=== PATIENT | female | born 1970 | race Caucasian/White ===

== ENCOUNTER → 2022-11-09 | Outpatient (CLI) | payer BC ==
--- NOTE | 2022-11-09 10:30 | USB ---
Reason for Exam: Follow-up at short interval from prior study. Patient History: Menarche at age 10. First Full-Term at age 20. Hysterectomy at age 40. Postmenopausal. Patient has history of breast feeding. 05/03/2022, Benign US biopsy breast VAD LT on the left side. Maternal grandmother had breast cancer. Risk Values: Jesica 5 year model risk: 1.2%. NCI Lifetime model risk: 8.8%. Technique: Method: Targeted. Prior Study Comparison: 01/07/2014 Bilateral Screening Mammogram, [facility]. 03/30/2022 Bilateral MG 3D screening mammo w/cad, [facility]. 05/03/2022 Left MG diagnostic mammo LT wo CAD., [facility]. Findings: The upper section of the breast of the left breast, the axilla of the left breast and the retroareolar of the left breast were scanned. Imaged: Ultrasound imaging of: Area of concern, retroareolar region and axilla. New hypoechoic lesion with shadowing measuring up to 5 mm 1:00 4 cm from the nipple. Stable appearing cyst with clip in place at 12:00 4 cm to the nipple. Overall Assessment: Suspicious, BI-RAD 4 Management: Ultrasound Core Biopsy of the left breast. A clinical breast exam by your physician is recommended on an annual basis and results should be correlated with mammographic findings. This exam should not preclude additional follow-up of suspicious palpable abnormalities. Results were given to the patient verbally at the time of exam. Electronically signed and approved by: Erickson Hess DO
== END | disposition home or self-care (01) ==
LOC: RADUSWWP 09:40
PROVIDERS: ATTEND Surgery
DX: R92.8 Other abnormal and inconclusive findings on diagnostic imaging of breast (principal); Z78.0 Asymptomatic menopausal state; Z80.3 Family history of malignant neoplasm of breast

== ENCOUNTER → 2022-11-16 | Day surgery (SDC) | payer BC ==
--- NOTE | 2022-11-21 12:06 | MM ---
Reason for Exam: Post Procedure Mammogram. Last screening mammogram was performed 7 month(s) ago. Patient History: Menarche at age 10. First Full-Term at age 20. Hysterectomy at age 40. Postmenopausal. Patient has history of breast feeding. 05/03/2022, Benign US biopsy breast VAD LT on the left side. Maternal grandmother had breast cancer. Risk Values: Jesica 5 year model risk: 1.2%. NCI Lifetime model risk: 8.8%. Prior Study Comparison: 01/07/2014 Bilateral Screening Mammogram, [facility]. 03/30/2022 Bilateral MG 3D screening mammo w/cad, [facility]. 05/03/2022 Left MG diagnostic mammo LT wo CAD., [facility]. Tissue Density: Left: The breast tissue is heterogeneously dense. This may lower the sensitivity of mammography. Pathology Description: Marker Left Behind. Needle Type: Celero Cores: 3 Gauge: 12 The procedure of ultrasound guided core biopsy was explained to the patient. Benefits, alternatives, and risks were discussed. An informed consent was then obtained. The patient was placed in supine positioning for imaging and for the procedure. The overlying skin was prepped and draped in usual sterile fashion. Lidocaine buffered with bicarbonate was used as anesthetic into the skin and subcutaneous tissue up to area of concern in the left breast. Under ultrasound guidance, a 12-gauge vacuum assisted biopsy gun device was used to obtain 3 core samples. Following this, a biopsy clip was left in lesion. The patient tolerated the procedure well without any immediate complication. The patient was kept in the radiology department for short stay after the procedure and then discharged home in stable condition. Postprocedure mammogram: The patient was transferred to mammography for physician ordered post procedure mammogram for clip placement verification. Impression: Successful, uncomplicated ultrasound guided core biopsy of area of concern in the left 1:00 breast, full pathology results to follow. Pathology Results: Result: High risk, Papilloma-high risk. LEFT BREAST, 1:00, NEEDLE CORE BIOPSY: Sclerotic intraductal papilloma. Overall Assessment: High risk Assessment: MG diagnostic mammo LT wo CAD. - Left: Suspicious, BI-RAD 4. Management: Surgical Consultation of the left breast. Electronically signed and approved by: William Bello M.D. Radiologis
== END ==
LOC: RADUSWWP 12:30
PROVIDERS: ATTEND Surgery
DX: R92.8 Other abnormal and inconclusive findings on diagnostic imaging of breast (principal); D24.2 Benign neoplasm of left breast
CPT/HCPCS: 88305; 77065; 19083; A4648

== ENCOUNTER 2023-01-09 07:41 | Day surgery (SDC) | payer BC ==
[2023-01-03 09:00] VITALS: BMI 39.8
--- NOTE | 2023-01-05 08:57 | P.PN ---
Subjective Progress Note Date: 01/05/23 Principal diagnosis: Discordant core biopsy intraductal papilloma left breast intraductal papilloma/discordant Aileen is a 52-year-old white female seen in consultation for Alice Rosales regarding a ultrasound-guided core biopsy of the left breast. She underwent a bilateral screening mammogram on 1522. This led to a left breast ultrasound and a left breast ultrasound-guided core biopsy. The biopsy was performed on 2822. Pathology revealed fibrocystic changes including cyst wall with apocrine metaplasia and fibrosis. This was felt to be benign concordant. Did not feel any lumps masses or nodules of concern in either breast. Tolerated the core biopsy without difficulty. She has never had any surgery on her breast in the past. She has not had any recent trauma or infection in the breast. She is not taking any hormones. The patient had a repeat ultrasound on 11-09-22 which showed a new area of concern at 1:00 4 cm from the nipple. A core biopsy on 11-16-22 revealed a sclerotic intraductal papilloma which was reviewed with the radiologist. This was felt to be discordant and excision was recommended. Caffiene: minimal nicotine: none chocolate: occasional BCP: none hormones; none hysterectomy 2010 still has her ovaries done for ? spot no cancer Family History: father: throat cancer, smoker Hormonal History: menarche: 11 M1, breast fed: yes, age at first : 20 menopause: hysterectomy 39 left ovaries Surgical History: hysterectomy bilateral knee surgery ACL surgery on the left and ganglion cyst on the right Medical History: none Social History: nicotine: none alcohol: occasional drugs: none - Constitutional Constitutional: Denies chills, Denies fever - EENT Eyes: denies blurred vision, denies pain Ears: deny: decreased hearing, tinnitus Ears, nose, mouth and throat: Reports headache, Denies sore throat - Breasts Breasts: bilateral: as per HPI - Cardiovascular Cardiovascular: Denies chest pain, Denies shortness of breath - Respiratory Respiratory: Denies cough - Gastrointestinal Gastrointestinal: Denies abdominal pain, Denies diarrhea, Denies nausea, Denies vomiting - Genitourinary (Female) Genitourinary: Denies dysuria, Denies hematuria - Menstruation Menstruation: Reports post hysterectomy - Musculoskeletal Comment: left knee Musculoskeletal: Reports as per HPI - Integumentary Comment: itching right hand Integumentary: Denies pruritus, Denies rash - Neurological Neurological: Denies numbness, Denies weakness - Psychiatric Psychiatric: Denies anxiety, Denies depression - Endocrine Endocrine: Reports weight change - Hematologic/Lymphatic Comment: none - Allergic/Immunologic Allergic/Immunologic: Reports as per HPI Past Medical History Past Medical History: No Reported History, Osteoarthritis (OA) Additional Past Medical History / Comment(s): left knee arthritis History of Any Multi-Drug Resistant Organisms: None Reported Past Surgical History: Hysterectomy Additional Past Surgical History / Comment(s): multiple Bilat knee operations Past Anesthesia/Blood Transfusion Reactions: Postoperative Nausea & Vomiting (PONV) Past Psychological History: No Psychological Hx Reported Smoking Status: Never smoker Past Alcohol Use History: Occasional Past Drug Use History: None Reported Medications and Allergies Home Medications Medication Instructions Recorded Confirmed Type No Known Home Medications 04/18/22 05/12/22 History Allergies Allergy/AdvReac Type Severity Reaction Status Date / Time No Known Allergies Allergy Verified 05/12/22 12:37 Objective - Constitutional General appearance: Present: cooperative - EENT Eyes: Present: EOMI ENT: Present: hearing grossly normal - Neck Neck: Present: normal ROM - Respiratory Respiratory: bilateral: CTA - Cardiovascular Heart sounds: normal: S1, S2 - Integumentary Integumentary: Present: normal turgor - Musculoskeletal Musculoskeletal: Present: gait normal - Psychiatric Psychiatric: Present: A&O x's 3, appropriate affect, intact judgment & insight - Additional findings Additional findings: Breast examination: puncture site healing well left breast at recent core biopsy site Inspection: Bilateral grade 2 ptosis Palpation: Right breast: No dominant masses or nodules of concern Right axilla: No adenopathy of concern left breast: Multiple positional exam no dominant masses or nodules of concern Left axilla: No adenopathy of concern Assessment and Plan Assessment: Impression: Discordant left breast core biopsy Plan: Left breast needle local excisional biopsy, the lesion to be localized has a Top-blanker operator and cc from above approach was recommended as per Dr. Denton. The patient has a second marker in her breast which is a core marker which was from a benign biopsy in the past. This area is not been localized. The patient may have left breast onco-plastic tissue transfer as well. Cc: Alice BARBER
[~2023-01-09 07:41] MED LIST: DEXAMETHASONE SOD PHOSPHATE 4 MG/ML 1 ML VIAL IV ONE; HEPARIN SODIUM,PORCINE/PF 5,000 UNIT/0.5 ML SYRINGE SQ PRN; HYDROmorphone 0.5 MG/0.5 ML SYRINGE IVP PRN; LACTATED RINGERS 1,000 ML IV SCH; LIDOCAINE 1% (10MG/ML) FOR IV START INTRADERMA PRN; MIDAZOLAM 2 MG/2 ML VIAL IV PRN; ONDANSETRON 4 MG/2 ML VIAL IVP ONE
[2023-01-09] MEDS ORDERED: ALPRAZolam 0.5 MG TAB ONE (08:25)
[2023-01-09] MEDS ORDERED: SCOPOLAMINE 1 MG/72 HR PATCH TRANSDERM ONE (08:35)
[2023-01-09 09:03] VITALS: RESP 16
[2023-01-09] MEDS ORDERED: LIDOCAINE 1% INJ 10MG/ML (20 ML MDV) SQ ONE (09:10)
[2023-01-09] MEDS ORDERED: PROPOFOL 10 MG/ML 20 ML VIAL IV ONE (12:09)
[2023-01-09] MEDS ORDERED: fentaNYL (PF) 50 MCG/ML 2 ML AMP ONE (12:09)
[2023-01-09] MEDS ORDERED: LIDOCAINE 1% INJ 10MG/ML (20 ML MDV) ONE (12:09)
[2023-01-09] MEDS ORDERED: ePHEDrine 50 MG/ML 1 ML VIAL ONE (12:09)
[2023-01-09] MEDS ORDERED: PHENYLEPHRINE-0.9% NACL SYG 1,000 MCG/10 ML SYRINGE ONE (12:09)
[2023-01-09] MEDS ORDERED: MIDAZOLAM 2 MG/2 ML VIAL ONE (12:09)
[2023-01-09] MEDS ORDERED: SUCCINYLCHOLINE CHLORIDE 200 MG/10 ML VIAL IV ONE (12:09)
[2023-01-09] MEDS ORDERED: LACTATED RINGERS 1,000 ML IV ONE (12:39)
--- NOTE | 2023-01-09 13:01 | P.OP ---
Date of Procedure: 01/09/23 Preoperative Diagnosis: Discordant core biopsy left breast Postoperative Diagnosis: Same Procedure(s) Performed: Left breast needle localization excisional biopsy discordant core biopsy Anesthesia: GETA Surgeon: Viola Lott Estimated Blood Loss (ml): 5 IV fluids (ml): 500 Pathology: other (Breast tissue) Condition: stable Disposition: same day Indications for Procedure: Discordant core biopsy left breast/intraductal papilloma Operative Findings: Fibrofatty breast tissue Description of Procedure: Following needle localization of the area of concern in the left breast the patient was brought to the operating room. Following induction of anesthesia the left breast was prepped and draped in a sterile fashion. An incision was made and carried down to the hook of the needle. Surrounding tissue was excised. The specimen was approximately 6 cm x 6 cm in size. After assured that hemostasis was attained titanium clips were placed. The deep tissues were closed using 3-0 Vicryl suture. The skin was closed using 3-0 Vicryl suture in the subcutaneous tissue and 4-0 Monocryl. The surgical glue was placed. Patient tolerated the procedure in stable condition. All instrument and sponge counts were correct at the end of the case. Radiograph of the specimen revealed the top. Clip which was the area of concern had been adequately removed.
[2023-01-09 13:54] VITALS: TEMP 97
[2023-01-09] MEDS ORDERED: HYDROcodone/APAP 5-325MG 1 EACH TAB ONE (14:29)
[2023-01-09] MEDS ORDERED: HYDROcodone/APAP 5-325MG 1 EACH TAB PO ONE (14:30)
[2023-01-09 15:12] VITALS: BP 145/88; PULSE 85
--- NOTE | 2023-01-17 12:16 | MM ---
Risk Values: Jesica 5 year model risk: 1.5%. NCI Lifetime model risk: 11.1%. Pathology Description: Approach: CC FA Needle Type: 7 cm Kopan no problems/ top hat clip is what we biopsied The needle localization procedure with wire placement for surgical excision was explained to the patient. Benefits, alternatives, and risks were discussed. An informed consent was then obtained. A timeout was performed. The overlying skin was prepped in usual sterile fashion. Lidocaine was used as anesthetic into the skin and subcutaneous tissue up to the level of area of concern. The tophat marker was localized. A 7 cm needle was used. It was placed using a superior craniocaudal approach under mammographic guidance. Subsequent 90 degrees mammogram show the needle to be in satisfactory position relative to the targeted area. The wire was placed and the needle was withdrawn. The wire was fixed to patient's skin. Images were reviewed with the surgeon. The patient tolerated the procedure well without any immediate complication. The patient was kept in the radiology department for short stay after the procedure and then taken to surgery for surgical excision. Specimen: Biopsy marker and wire are identified in specimen mammogram. Impression: 1. Successful needle localization with wire placement and surgical excision of biopsy marker. Pathology Results: Result: Malignant, Ductal carcinoma in situ, micropapillary type. 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 Sclerotic intraductal papilloma, margins negative. Background fibrocystic changes and previous biopsy site. See Surgical Pathology Cancer Case Summary. Overall Assessment: Malignant Management: Surgical Consultation of the left breast. Electronically signed and approved by: Melchor Diamond D.O. Radiologis
== END 2023-01-09 15:19 | disposition home or self-care (01) ==
LOC: OR 07:41
PROVIDERS: ATTEND Surgery
DX: D05.12 Intraductal carcinoma in situ of left breast (principal); N60.82 Other benign mammary dysplasias of left breast; F10.90 Alcohol use, unspecified, uncomplicated
CPT/HCPCS: 88342; 88307; 88341; 76098; 19281; 19101; J2250; J0330; J1100; J0690; J2405; J2001; J3010; J2704; J1644; J2371

== ENCOUNTER → 2023-01-12 | Outpatient (CLI) | payer BC ==
--- NOTE | 2023-01-12 14:32 | P.PN ---
Progress Note - Text Progress Note Date: 01/12/23 This a 52-year-old white female status post left breast excisional biopsy [id number]. Postoperatively she is doing well only with complaints of abdominal pain when she coughs. It is not complaining of any fever or chills. She hasn't taken any pain medicine. Examination: lungs: Heart: Regular rate and rhythm Incision: Clean and dry Impression: Patient doing well postoperatively pathology pending Plan: Follow-up 6 months with repeat left breast mammogram, patient will call next week for pathology results CC: Alice Rosales
[2023-01-12 14:42] VITALS: BP 133/84; PULSE 67; RESP 18; TEMP 98.1
== END ==
LOC: WWCWWP 14:25
PROVIDERS: ATTEND Surgery
DX: D24.2 Benign neoplasm of left breast (principal); Z88.8 Allergy status to other drugs, medicaments and biological substances

== ENCOUNTER → 2023-02-09 | Outpatient (CLI) | payer BC ==
[2023-02-09 13:36] VITALS: BP 163/88; PULSE 65; RESP 17; TEMP 98.4
--- NOTE | 2023-02-09 13:48 | P.PN ---
Subjective Progress Note Date: 02/09/23 Principal diagnosis: DCIS left breast This a 52-year-old white female status post left breast excisional biopsy [id number]. Pain well postoperatively. Her pathology revealed ductal carcinoma in situ. Her margins were negative. [place] [id number]. No further surgical intervention was recommended. Note medical oncology [id number] reviewed recommendations for tamoxifen Note radiation oncology [id number] reviewed recommendations for radiation therapy; one week Objective - Vital Signs Vital signs: Vital Signs Temp 98.4 F 02/09/23 13:33 Pulse 65 02/09/23 13:33 Resp 17 02/09/23 13:33 BP 163/88 02/09/23 13:33 Pulse Ox 95 02/09/23 13:33 FiO2 Intake & Output 02/08/23 02/09/23 02/09/23 18:59 06:59 18:59 Weight 99.337 kg - Constitutional General appearance: Present: cooperative - EENT ENT: Present: hearing grossly normal - Neck Neck: Present: normal ROM - Respiratory Respiratory: bilateral: CTA - Cardiovascular Rhythm: regular Heart sounds: normal: S1, S2 - Gastrointestinal General gastrointestinal: Present: soft - Integumentary Integumentary: Present: normal turgor - Musculoskeletal Musculoskeletal: Present: gait normal - Psychiatric Psychiatric: Present: A&O x's 3, appropriate affect, intact judgment & insight - Additional findings Additional findings: Breast Exam: BRA: 40DD Inspection: Well-healed scar left breast, bilateral grade 2 ptosis Palpation: Right breast: Multi-positional exam no dominant masses or nodules of concern Right axilla: No adenopathy of concern Left breast: Multiple positional exam no dominant masses or nodules of concern, well-healed scar from prior surgery Left axilla: No adenopathy of concern Assessment and Plan Assessment: Impression: DCIS left breast Plan: 1 week radiation therapy Tamoxifen as per medical oncology Follow-up here in 4 months CC: Alice Rosales
== END ==
LOC: WWCWWP 12:47
PROVIDERS: ATTEND Surgery
DX: D05.12 Intraductal carcinoma in situ of left breast (principal); Z88.8 Allergy status to other drugs, medicaments and biological substances

== ENCOUNTER → 2023-04-02 | Outpatient (CLI) | payer BC ==
--- NOTE | 2023-04-02 15:02 | MM ---
Reason for Exam: Follow-up at short interval from prior study. Last screening mammogram was performed 12 month(s) ago. Patient History: Menarche at age 10. First Full-Term at age 20. Hysterectomy at age 40. Postmenopausal. Patient has history of breast feeding. Breast cancer, left, age 52. Previous chest radiation therapy. 01/09/2023, Lumpectomy on the Left side. 01/09/2023, Malignant MG pre op needle loc LT on the left side. 11/16/2022, High risk US biopsy breast VAD LT on the left side. 05/03/2022, Benign US biopsy breast VAD LT on the left side. Maternal grandmother had breast cancer. Prior Study Comparison: 03/30/2022 Bilateral MG 3D screening mammo w/cad, [facility]. 05/03/2022 Left MG diagnostic mammo LT wo CAD., [facility]. 11/16/2022 Left MG diagnostic mammo LT wo CAD., [facility]. Tissue Density: Right: There are scattered fibroglandular densities. Findings: Analyzed By CAD. Right breast pattern appears stable. There is a focal asymmetry which is stable in the upper right medial lateral oblique view. No suspicious groups of microcalcifications, spiculated or lobular masses, architectural distortion or other secondary signs of malignancy are mammographically apparent. Overall Assessment: Benign, BI-RAD 2 Management: Screening Mammogram of the right breast in 1 year. Diagnostic Mammogram of the left breast in 4 months. A negative mammogram report should not preclude additional follow up of suspicious palpable abnormalities. Patient should continue monthly self breast exam. A clinical breast exam by your physician is recommended on an annual basis and results should be correlated with mammographic findings. Electronically signed and approved by: Melchor Diamond D.O. Radiologis
== END | disposition home or self-care (01) ==
LOC: RADMAMWWP 14:34
PROVIDERS: ATTEND Radiology Radiation Oncology
DX: R92.321 Mammographic fibroglandular density, right breast (principal); D05.12 Intraductal carcinoma in situ of left breast; Z17.0 Estrogen receptor positive status [ER+]; Z78.0 Asymptomatic menopausal state; Z85.3 Personal history of malignant neoplasm of breast; Z80.3 Family history of malignant neoplasm of breast
CPT/HCPCS: 77061; 77065

== ENCOUNTER → 2023-07-09 | Outpatient (CLI) | payer BC ==
--- NOTE | 2023-07-09 23:31 | MM ---
Reason for Exam: Follow-up at short interval from prior study. Last mammogram was performed 1 year(s) and 3 month(s) ago. Patient History: Menarche at age 10. First Full-Term at age 20. Hysterectomy at age 40. Postmenopausal. Patient has history of breast feeding. Breast cancer, left, age 52. Previous chest radiation therapy. 01/09/2023, Lumpectomy on the Left side. 01/09/2023, Malignant MG pre op needle loc LT on the left side. 11/16/2022, High risk US biopsy breast VAD LT on the left side. 05/03/2022, Benign US biopsy breast VAD LT on the left side. Maternal grandmother had breast cancer. Prior Study Comparison: 05/03/2022 Left MG diagnostic mammo LT wo CAD., [facility]. 11/16/2022 Left MG diagnostic mammo LT wo CAD., [facility]. 04/02/2023 Right MG 3D diag mammo w/cad RT, [facility]. Tissue Density: Left: The breasts are heterogeneously dense, which may obscure small masses. Findings: Analyzed By CAD. The pattern appears stable. Surgical clips from previous lumpectomy are present. Core marker remains in the anterior left breast. No significant interval change is evident. No suspicious groups of microcalcifications, spiculated or lobular masses, architectural distortion or other secondary signs of malignancy are mammographically apparent. Overall Assessment: Benign, BI-RAD 2 Management: Diagnostic Mammogram of both breasts in 8 months. A negative mammogram report should not preclude additional follow up of suspicious palpable abnormalities. Patient should continue monthly self breast exam. A clinical breast exam by your physician is recommended on an annual basis and results should be correlated with mammographic findings. Electronically signed and approved by: Melchor Diamond D.O. Radiologis
== END | disposition home or self-care (01) ==
LOC: RADMAMWWP 10:59
PROVIDERS: ATTEND Surgery
DX: R92.8 Other abnormal and inconclusive findings on diagnostic imaging of breast (principal); R92.332 Mammographic heterogeneous density, left breast; Z85.3 Personal history of malignant neoplasm of breast; Z80.3 Family history of malignant neoplasm of breast; Z78.0 Asymptomatic menopausal state
CPT/HCPCS: 77061; 77065

== ENCOUNTER → 2023-07-13 | Outpatient (CLI) | payer BC ==
[2023-07-13 09:57] VITALS: BP 147/90; PULSE 75; RESP 16; TEMP 98.3
--- NOTE | 2023-07-13 09:59 | P.PN ---
Subjective Progress Note Date: 07/13/23 07-13-23 Principal diagnosis: Discordant core biopsy intraductal papilloma left breast intraductal papilloma/discordant Aileen is a 53-year-old white female seen in consultation for Alice Rosales regarding a ultrasound-guided core biopsy of the left breast. She underwent a b ilateral screening mammogram on 1522. This led to a left breast ultrasound and a left breast ultrasound-guided core biopsy. The biopsy was performed on 2822. Pathology revealed fibrocystic changes including cyst wall with apocrine metaplasia and fibrosis. This was felt to be benign concordant. Did not feel any lumps masses or nodules of concern in either breast. Tolerated the core biopsy without difficulty. She has never had any surgery on her breast in the past. She has not had any recent trauma or infection in the breast. She is not taking any hormones. The patient had a repeat ultrasound on 11-09-22 which showed a new area of concern at 1:00 4 cm from the nipple. A core biopsy on 11-16-22 revealed a sclerotic intraductal papilloma which was reviewed with the radiologist. This was felt to be discordant and excision was recommended. Excision was done on 01-09-23 which revealed a 2 mm focus of DCIS. This was completely resected. This was grade 1. Margins were negative but closest margin was 1.5 mm from the posterior margin. This was ER positive and AL positive. She was subsequently seen by medical oncology and started on tamoxifen 20 mg daily. She was also seen by radiation oncology and had a five day curse which she completed on February 23. She is not complaining of any new lumps masses or nodules of concern in either breast. note Dr. Montero 07-09-23 reviewed left breast mammogram on 07-09-23 BIRAD 2 right breast mammogram on 04-02-23 BIRAD 2 Caffiene: minimal nicotine: none chocolate: occasional BCP: none hormones; none hysterectomy 2010 still has her ovaries done for ? spot no cancer Family History: father: throat cancer, smoker Hormonal History: menarche: 11 M1, breast fed: yes, age at first : 20 menopause: hysterectomy 39 left ovaries Surgical History: hysterectomy bilateral knee surgery ACL surgery on the left and ganglion cyst on the right Medical History: none Social History: nicotine: none alcohol: occasional drugs: none - Constitutional Constitutional: Denies chills, Denies fever - EENT Eyes: denies blurred vision, denies pain Ears: deny: decreased hearing, tinnitus Ears, nose, mouth and throat: Reports headache, Denies sore throat - Breasts Breasts: bilateral: as per HPI - Cardiovascular Cardiovascular: Denies chest pain, Denies shortness of breath - Respiratory Respiratory: Denies cough - Gastrointestinal Gastrointestinal: Denies abdominal pain, Denies diarrhea, Denies nausea, Denies vomiting - Genitourinary (Female) Genitourinary: Denies dysuria, Denies hematuria - Menstruation Menstruation: Reports post hysterectomy - Musculoskeletal Comment: left knee Musculoskeletal: Reports as per HPI - Integumentary Comment: itching right hand Integumentary: Denies pruritus, Denies rash - Neurological Neurological: Denies numbness, Denies weakness - Psychiatric Psychiatric: Denies anxiety, Denies depression - Endocrine Endocrine: Reports weight change - Hematologic/Lymphatic Comment: none - Allergic/Immunologic Allergic/Immunologic: Reports as per HPI Past Medical History Past Medical History: No Reported History, Osteoarthritis (OA) Additional Past Medical History / Comment(s): left knee arthritis History of Any Multi-Drug Resistant Organisms: None Reported Past Surgical History: Hysterectomy Additional Past Surgical History / Comment(s): multiple Bilat knee operations Past Anesthesia/Blood Transfusion Reactions: Postoperative Nausea & Vomiting (PONV) Past Psychological History: No Psychological Hx Reported Smoking Status: Never smoker Past Alcohol Use History: Occasional Past Drug Use History: None Reported Medications and Allergies Home Medications Medication Instructions Recorded Confirmed Type No Known Home Medications 04/18/22 05/12/22 History Allergies Allergy/AdvReac Type Severity Reaction Status Date / Time No Known Allergies Allergy Verified 05/12/22 12:37 Objective - Vital Signs Vital signs: Vital Signs Temp 98.3 F 07/13/23 09:12 Pulse 75 07/13/23 09:12 Resp 16 07/13/23 09:12 BP 147/90 07/13/23 09:12 Pulse Ox 96 07/13/23 09:12 FiO2 Intake & Output 07/12/23 07/13/23 07/13/23 18:59 06:59 18:59 Weight 97.522 kg - Constitutional General appearance: Present: cooperative - EENT Eyes: Present: EOMI ENT: Present: hearing grossly normal - Neck Neck: Present: normal ROM - Respiratory Respiratory: bilateral: CTA - Cardiovascular Rhythm: regular Heart sounds: normal: S1, S2 - Gastrointestinal General gastrointestinal: Present: soft - Integumentary Integumentary: Present: normal turgor - Musculoskeletal Musculoskeletal: Present: gait normal - Psychiatric Psychiatric: Present: A&O x's 3, appropriate affect, intact judgment & insight - Additional findings Additional findings: Breast examination: Inspection: Bilateral grade 2 ptosis, postsurgical postradiation changes left breast, left breast slightly smaller than right breast Palpation: Right breast: No dominant masses or nodules of concern Right axilla: No adenopathy of concern left breast: Multiple positional exam no dominant masses or nodules of concern, well-healed scar prior surgery Left axilla: No adenopathy of concern Assessment and Plan Assessment: Impression: Left breast DCIS 2 mm status postlumpectomy/radiation therapy/hormonal therapy presently No evidence of any recurrent disease Bilateral mammograms have been performed although they were staggered right breast in March and left breast in June Plan: Bilateral mammogram in March 2024 with examination at that time 6-month follow-up examination Continue to follow with medical and radiation oncology Continue tamoxifen Patient to follow-up sooner any questions or concerns CC: Dr. Albright
== END ==
LOC: WWCWWP 08:53
PROVIDERS: ATTEND Surgery
DX: R92.8 Other abnormal and inconclusive findings on diagnostic imaging of breast (principal); D05.12 Intraductal carcinoma in situ of left breast; N60.82 Other benign mammary dysplasias of left breast; Z88.8 Allergy status to other drugs, medicaments and biological substances

== ENCOUNTER → 2024-01-03 | Outpatient (CLI) | payer BC ==
[2024-01-03 10:41] VITALS: BP 149/86; PULSE 80; RESP 17; TEMP 97.9
--- NOTE | 2024-01-03 10:49 | P.PN ---
Subjective Progress Note Date: 01/03/24 Principal diagnosis: DCIS left breast 01-03-24 Principal diagnosis: DCIS left breast 2022 Aileen is a 53-year-old white female seen in consultation for Alice Rosales regarding a ultrasound-guided core biopsy of the left breast. She underwent a bilateral screening mammogram on 1522. This led to a left breast ultrasound and a left breast ultrasound-guided core biopsy. The biopsy was performed on 2822. Pathology revealed fibrocystic changes including cyst wall with apocrine metaplasia and fibrosis. This was felt to be benign concordant. She did not feel any lumps masses or nodules of concern in either breast. Tolerated the core biopsy without difficulty. She has never had any surgery on her breast in the past. She had not had any recent trauma or infection in the breast. She was not taking any hormones. The patient had a repeat ultrasound on 11-09-22 which showed a new area of concern at 1:00 4 cm from the nipple. A core biopsy on 11-16-22 revealed a sclerotic intraductal papilloma which was reviewed with the radiologist. This was felt to be discordant and excision was recommended. Excision was done on 01-09-23 which revealed a 2 mm focus of DCIS. This was completely resected. This was grade 1. Margins were negative but closest margin was 1.5 mm from the posterior margin. This was ER positive and UT positive. She was subsequently seen by medical oncology and started on tamoxifen 20 mg daily. She was also seen by radiation oncology and had a five day course which she completed on February 23. She is not complaining of any new lumps masses or nodules of concern in either breast. She had a stroke in July, she states she was a conference and started "picking on the air" seizure for approximately 1 minute and then was taken to the hospital. She was seen at the hospital in [facility] where a CT scan of the head was performed she was told that she had a bleed and a brain tumor. 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 In the hospital she was on a heparin drip for 4 days and then changed to Eliquis and Keppra. She is presently on Eliquis and Keppra. There was some concern at that time that the thrombosis may be related to the tamoxifen. However further discussion with medical oncology and her primary care doctor do not believe that this is Exofin, however as a precaution she has opted not to take it at this time. note Dr. Montero 09-25-23 reviewed she stopped tamoxifen secomdary to the stroke; she is also on eliquis note radiation oncology reivewed: 09-13-23 Plan of any new lumps masses or nodules of concern in either breast. She does feel postoperative changes in the left breast. Secondary to the stroke is unable to drive for 6 months from the event. left breast mammogram on 07-09-23 BIRAD 2 right breast mammogram on 04-02-23 BIRAD 2 Caffiene: minimal nicotine: none chocolate: occasional BCP: none hormones; none hysterectomy 2010 still has her ovaries done for ? spot no cancer Family History: father: throat cancer, smoker Hormonal History: menarche: 11 M1, breast fed: yes, age at first : 20 menopause: hysterectomy 39 left ovaries Surgical History: hysterectomy bilateral knee surgery ACL surgery on the left and ganglion cyst on the right Medical History: stroke 08-02-23 Social History: nicotine: none alcohol: occasional drugs: none - Constitutional Constitutional: Denies chills, Denies fever - EENT Eyes: denies blurred vision, denies pain Ears: deny: decreased hearing, tinnitus Ears, nose, mouth and throat: Reports headache, Denies sore throat - Breasts Breasts: bilateral: as per HPI - Cardiovascular Cardiovascular: Denies chest pain, Denies shortness of breath - Respiratory Respiratory: Denies cough - Gastrointestinal Gastrointestinal: Denies abdominal pain, Denies diarrhea, Denies nausea, Denies vomiting - Genitourinary (Female) Genitourinary: Denies dysuria, Denies hematuria - Menstruation Menstruation: Reports post hysterectomy - Musculoskeletal Comment: left knee Musculoskeletal: Reports as per HPI - Integumentary Comment: itching right hand Integumentary: Denies pruritus, Denies rash - Neurological Neurological: Denies numbness, Denies weakness - Psychiatric Psychiatric: Denies anxiety, Denies depression - Endocrine Endocrine: Reports weight change - Hematologic/Lymphatic Comment: none - Allergic/Immunologic Allergic/Immunologic: Reports as per HPI Past Medical History Past Medical History: No Reported History, Osteoarthritis (OA) Additional Past Medical History / Comment(s): left knee arthritis History of Any Multi-Drug Resistant Organisms: None Reported Past Surgical History: Hysterectomy Additional Past Surgical History / Comment(s): multiple Bilat knee operations Past Anesthesia/Blood Transfusion Reactions: Postoperative Nausea & Vomiting (PONV) Past Psychological History: No Psychological Hx Reported Smoking Status: Never smoker Past Alcohol Use History: Occasional Past Drug Use History: None Reported Medications and Allergies Home Medications Medication Instructions Recorded Confirmed Type No Known Home Medications 04/18/22 05/12/22 History Allergies Allergy/AdvReac Type Severity Reaction Status Date / Time No Known Allergies Allergy Verified 05/12/22 12:37 Objective - Constitutional General appearance: Present: cooperative - EENT Eyes: Present: EOMI ENT: Present: hearing grossly normal - Neck Neck: Present: normal ROM - Respiratory Respiratory: bilateral: CTA - Cardiovascular Rhythm: regular Heart sounds: normal: S1, S2 - Integumentary Integumentary: Present: normal turgor - Musculoskeletal Musculoskeletal: Present: gait normal - Psychiatric Psychiatric: Present: A&O x's 3, appropriate affect, intact judgment & insight - Additional findings Additional findings: Breast Exam: Inspection: Bilateral grade 2 ptosis, postsurgical postradiation changes left breast, left breast slightly smaller than right breast Palpation: Right breast: No dominant masses or nodules of concern Right axilla: No adenopathy of concern left breast: Multiple positional exam no dominant masses or nodules of concern, well-healed scar prior surgery Left axilla: No adenopathy of concern evidence of fungal infection under both breast Assessment and Plan Assessment: Impression: Left breast DCIS 2 mm status postlumpectomy/radiation therapy/hormonal therapy presently No evidence of any recurrent disease Bilateral mammograms have been performed although they were staggered right breast in March and left breast in June fungal infection under both breast Plan: Bilateral mammogram in March 2024 with examination at that time appointment in March Continue to follow with medical and radiation oncology Stop hormone therapy secondary to hypercoagulable state resulting in a stroke, we have discussed this and at this time follow with medical oncology with respect to this but I think it is very reasonable but she is just followed conservatively Patient to follow-up sooner any questions or concerns nystatin to area of concern as needed Greater than 20 minutes spent reviewing chart, examining the patient, and discussing treatment plan. CC: Dr. Albright Additional CC's: Hayley Hameed
== END ==
LOC: WWCWWP 09:21
PROVIDERS: ATTEND Surgery

== ENCOUNTER → 2024-04-04 | Outpatient (CLI) | payer BC ==
--- NOTE | 2024-04-04 10:08 | MM ---
Reason for Exam: Hx of breast cancer, conservation therapy. Last mammogram was performed 2 year(s) and 0 month(s) ago. Patient History: Menarche at age 10. First Full-Term at age 20. Hysterectomy at age 40. Postmenopausal. Patient has history of breast feeding. Breast cancer, left, age 52. Previous chest radiation therapy. 01/09/2023, Lumpectomy on the Left side. 01/09/2023, Malignant MG pre op needle loc LT on the left side. 11/16/2022, High risk US biopsy breast VAD LT on the left side. 05/03/2022, Benign US biopsy breast VAD LT on the left side. Maternal grandmother had breast cancer. Prior Study Comparison: 05/03/2022 Left MG diagnostic mammo LT wo CAD., [facility]. 11/09/2022 Left US breast limited LT, [facility]. 11/16/2022 Left MG diagnostic mammo LT wo CAD., [facility]. 04/02/2023 Right MG 3D diag mammo w/cad RT, [facility]. 07/09/2023 Left MG 3D diag mammo w/cad LT, [facility]. Tissue Density: The breasts are heterogeneously dense, which may obscure small masses. Findings: Analyzed By CAD. Left breast surgical clips. There is no suspicious group of microcalcifications or new suspicious mass. Benign-appearing calcifications left breast. No new suspicious masses, calcifications or distortions. Overall Assessment: Benign, BI-RAD 2 Management: Screening Mammogram of both breasts in 1 year. Results were given to the patient verbally at the time of exam. Patient should continue monthly self-breast exams. A clinical breast exam by your physician is recommended on an annual basis. This exam should not preclude additional follow-up of suspicious palpable abnormalities. Note on Jesica scores and lifetime risk: 1. A Jesica score greater than 3% is considered moderate risk. If this is the case, consider specialist referral to assess eligibility for a risk reducing agent. 2. If overall lifetime risk for the development of breast cancer is 20% or higher, the patient may qualify for future screening with alternating mammogram and breast MRI. [facility], , 04/04/2024 10:05 AM. Electronically signed and approved by: Erickson Hess DO
== END | disposition home or self-care (01) ==
LOC: RADMAMWWP 09:27
PROVIDERS: ATTEND Surgery
DX: R92.333 Mammographic heterogeneous density, bilateral breasts (principal); Z85.3 Personal history of malignant neoplasm of breast; Z80.3 Family history of malignant neoplasm of breast; Z78.0 Asymptomatic menopausal state
CPT/HCPCS: 77062; 77066

== ENCOUNTER → 2024-04-10 | Outpatient (CLI) | payer BC ==
[2024-04-10 11:02] VITALS: BP 149/91; PULSE 98; RESP 16; TEMP 98.2
--- NOTE | 2024-04-10 11:15 | P.PN ---
Subjective Progress Note Date: 04/10/24 Principal diagnosis: DCIS left breast 04-10-24 Principal diagnosis: DCIS left breast 2022 Aileen is a 53-year-old white female seen in consultation for Alice Rosales regarding a ultrasound-guided core biopsy of the left breast. She underwent a bilateral screening mammogram on 1522. This led to a left breast ultrasound and a left breast ultrasound-guided core biopsy. The biopsy was performed on 2822. Pathology revealed fibrocystic changes including cyst wall with apocrine metaplasia and fibrosis. This was felt to be benign concordant. She did not feel any lumps masses or nodules of concern in either breast. Tolerated the core biopsy without difficulty. She has never had any surgery on her breast in the past. She had not had any recent trauma or infection in the breast. She was not taking any hormones. The patient had a repeat ultrasound on 11-09-22 which showed a new area of concern at 1:00 4 cm from the nipple. A core biopsy on 11-16-22 revealed a sclerotic intraductal papilloma which was reviewed with the radiologist. This was felt to be discordant and excision was recommended. Excision was done on 01-09-23 which revealed a 2 mm focus of DCIS. This was completely resected. This was grade 1. Margins were negative but closest margin was 1.5 mm from the posterior margin. This was ER positive and FL positive. She was subsequently seen by medical oncology and started on tamoxifen 20 mg daily. She was also seen by radiation oncology and had a five day course which she completed on February 23. She is not complaining of any new lumps masses or nodules of concern in either breast. She had a stroke in July 2023, she states she was a conference and started "picking on the air" seizure for approximately 1 minute and then was taken to the hospital. She was seen at the hospital in [place] where a CT scan of the head was performed she was told that she had a bleed and a brain tumor. 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 In the hospital she was on a heparin drip for 4 days and then changed to Eliquis and Keppra. She was on Eliquis and Keppra at her last visit. There was some concern at that time that the thrombosis may be related to the tamoxifen. However further discussion with medical oncology and her primary care doctor do not believe that this was the case, however as a precaution she has opted not to take it at this time. note Dr. Montero 09-25-23 reviewed she stopped tamoxifen secomdary to the stroke; she is also on eliquis note Dr. Montero 01-03-24 reviewed she off tamoxifen at this time note radiation oncology reivewed: 09-13-23 Not complaining of any new lumps masses or nodules of concern in either breast. She does feel postoperative changes in the left breast. She is off the Eliquis at this time but will still stay on the Keppra for another year. At this time she is complaining of changes in her right eye and will see a retinal specialist tomorrow, she did have a migraine prior to thechanges in her vision Bilateral mammogram 04-04-24 Birad 2 Caffiene: minimal nicotine: none chocolate: occasional BCP: none hormones; none hysterectomy 2010 still has her ovaries done for ? spot no cancer Family History: father: throat cancer, smoker Hormonal History: menarche: 11 M1, breast fed: yes, age at first : 20 menopause: hysterectomy 39 left ovaries Surgical History: hysterectomy bilateral knee surgery ACL surgery on the left and ganglion cyst on the right Medical History: stroke 08-02-23 eye changes right eye Social History: nicotine: none alcohol: occasional drugs: none - Constitutional Constitutional: Denies chills, Denies fever - EENT Eyes: denies blurred vision, denies pain Ears: deny: decreased hearing, tinnitus Ears, nose, mouth and throat: Reports headache, Denies sore throat - Breasts Breasts: bilateral: as per HPI - Cardiovascular Cardiovascular: Denies chest pain, Denies shortness of breath - Respiratory Respiratory: Denies cough - Gastrointestinal Gastrointestinal: Denies abdominal pain, Denies diarrhea, Denies nausea, Denies vomiting - Genitourinary (Female) Genitourinary: Denies dysuria, Denies hematuria - Menstruation Menstruation: Reports post hysterectomy - Musculoskeletal Comment: left knee Musculoskeletal: Reports as per HPI - Integumentary Comment: itching right hand Integumentary: Denies pruritus, Denies rash - Neurological Neurological: Denies numbness, Denies weakness - Psychiatric Psychiatric: Denies anxiety, Denies depression - Endocrine Endocrine: Reports weight change - Hematologic/Lymphatic Comment: none - Allergic/Immunologic Allergic/Immunologic: Reports as per HPI Past Medical History Past Medical History: No Reported History, Osteoarthritis (OA) Additional Past Medical History / Comment(s): left knee arthritis History of Any Multi-Drug Resistant Organisms: None Reported Past Surgical History: Hysterectomy Additional Past Surgical History / Comment(s): multiple Bilat knee operations Past Anesthesia/Blood Transfusion Reactions: Postoperative Nausea & Vomiting (PONV) Past Psychological History: No Psychological Hx Reported Smoking Status: Never smoker Past Alcohol Use History: Occasional Past Drug Use History: None Reported Medications and Allergies Home Medications Medication Instructions Recorded Confirmed Type No Known Home Medications 04/18/22 05/12/22 History Allergies Allergy/AdvReac Type Severity Reaction Status Date / Time No Known Allergies Allergy Verified 05/12/22 12:37 Objective - Vital Signs Vital signs: Vital Signs Temp 98.2 F 04/10/24 10:59 Pulse 98 04/10/24 10:59 Resp 16 04/10/24 10:59 BP 149/91 04/10/24 10:59 Pulse Ox 95 04/10/24 10:59 FiO2 Intake & Output 04/09/24 04/10/24 04/10/24 18:59 06:59 18:59 Weight 87.997 kg - Constitutional General appearance: Present: cooperative - EENT Eyes: Present: EOMI ENT: Present: hearing grossly normal - Neck Neck: Present: normal ROM - Respiratory Respiratory: bilateral: CTA - Cardiovascular Rhythm: regular Heart sounds: normal: S1, S2 - Integumentary Integumentary: Present: normal turgor - Musculoskeletal Musculoskeletal: Present: gait normal - Psychiatric Psychiatric: Present: A&O x's 3, appropriate affect, intact judgment & insight - Additional findings Additional findings: Breast Exam: Inspection: Bilateral grade 2 ptosis, postsurgical postradiation changes left breast, left breast slightly smaller than right breast Palpation: Right breast: No dominant masses or nodules of concern Right axilla: No adenopathy of concern left breast: Multiple positional exam no dominant masses or nodules of concern, well-healed scar prior surgery Left axilla: No adenopathy of concern Assessment and Plan Assessment: Impression: Left breast DCIS 2 mm status postlumpectomy/radiation therapy/hormonal therapy presently No evidence of any recurrent disease Bilateral mammograms 04-04-24 BIRAD 2 personally reviewed and interpreted fungal infection under both breast resolved Plan: Bilateral mammogram in March 2025 with examination at that time appointment in 6 months Continue to follow with medical and radiation oncology Stop hormone therapy secondary to hypercoagulable state resulting in a stroke, w e have discussed this and at this time follow with medical oncology with respect to this but I think it is very reasonable but she is just followed conservatively Patient to follow-up sooner any questions or concerns CC: Dr. Albright
== END ==
LOC: WWCWWP 10:20
PROVIDERS: ATTEND Surgery
DX: B37.89 Other sites of candidiasis (principal); Z90.12 Acquired absence of left breast and nipple; Z91.02 Food additives allergy status